=== PATIENT | male | born 1960 | race Native Hawaiian/Other Pacific Islander ===

== ENCOUNTER 2017-03-27 13:30 | Emergency (ER) | payer MEDICAID ==
[~2017-03-27] VITALS: Ht 165.1 cm; Wt 88.2 kg
[2017-03-27 13:41] VITALS: BP 159/114
[2017-03-27 22:21] VITALS: BP 161/105
== END 2017-03-27 22:20 | disposition home or self-care (01) ==
LOC: MED 13:30
DX: S80.252A Superficial foreign body, left knee, initial encounter (principal); M54.5 Low back pain; G89.29 Other chronic pain; M19.90 Unspecified osteoarthritis, unspecified site; X58.XXXA Exposure to other specified factors, initial encounter; Y93.89 Activity, other specified; Y92.89 Other specified places as the place of occurrence of the external cause; Y99.8 Other external cause status
CPT/HCPCS: 72110; 73562; 99284